=== PATIENT | male | born 1975 | race Hispanic/Latino ===

== ENCOUNTER 2017-11-27 19:02 | Inpatient (IN) | payer BC ==
[~2017-11-27] VITALS: Ht 165.1 cm; Wt 135.4 kg
[~2017-11-27 19:02] MED LIST: ACET-66 PO; AEC81 PO; ATOR40TA69 PO; CLOP75TA32 PO; LISI10TA7 PO; METF-805 PO; RANI300T4 PO
[2017-11-28] VITALS (7 sets, daily range): BP systolic 94–117; BP diastolic 35–67
[2017-11-28] MEDS ORDERED: DEXTROSE 50%-WATER 50 ML DISP.SYRIN IV PRN (04:45)
[2017-11-28] MEDS ORDERED: ACETAMINOPHEN 325 MG SUPPOSITORY RC PRN (04:45)
[2017-11-28] MEDS ORDERED: POTASSIUM CHLORIDE 20MEQ/100ML 100 ML IV PRN (04:45)
[2017-11-28] MEDS ORDERED: ONDANSETRON HCL MDV 20ML 2 MG/ML VIAL IVP PRN (04:45)
[2017-11-28] MEDS ORDERED: GUAIFENESIN SUGAR-FREE 100 MG/5 ML UDCUP PO PRN ×2 (04:45→08:45)
[2017-11-28] MEDS ORDERED: GLUCAGON 1MG KIT 1 MG ML IM PRN (04:45)
[2017-11-28] MEDS ORDERED: LIDOCAINE HCL-MPF 1% 2ML VIAL IVP PRN (04:45)
[2017-11-28] MEDS ORDERED: POTASSIUM CHLORIDE 10% ELIXIR 20 MEQ/15 ML UDCUP PO PRN (04:45)
[2017-11-28] MEDS ORDERED: POTASSIUM CHLORIDE 20 MEQ ERTAB PO PRN (04:45)
[2017-11-28] MEDS ORDERED: METO-408 PO (05:11)
[2017-11-28] MEDS ORDERED: NITR0.4T50 SL (05:11)
[2017-11-28] MEDS ORDERED: AZITHROMYCIN 500MG+NS 250ML 250 ML IV SCH (05:30)
[2017-11-28] MEDS ORDERED: NITROGLYCERIN 0.4 MG SL TAB SL PRN (05:30)
[2017-11-28] MEDS ORDERED: FAMOTIDINE 20MG TAB 20 MG TAB PO SCH (05:30)
[2017-11-28] MEDS: LEVOFLOXACIN 500 MG/D5W 100 ML 100 ML IV SCH (05:41)
[2017-11-28] MEDS ORDERED: PHARMACY COMMUNICATION MISC SCH ×2 (05:45→06:15)
[2017-11-28] MEDS ORDERED: NITROGLYCERIN 1GM/1 INCH PACKET TD SCH (06:00)
[2017-11-28] MEDS: IPRATROPIUM/ALBUTEROL SULFATE 3 ML SOLUTION IH SCH ×3 (06:04→18:24)
[2017-11-28] MEDS ORDERED: SODIUM CHLORIDE 3% FOR INHALATION 4 ML/AMP VIAL.NEB IH ONE (06:25)
[2017-11-28] MEDS: INSULIN LISPRO 100 UNIT/ML 3ML SQ SCH ×4 (06:29→21:00)
[2017-11-28] MEDS: NITROGLYCERIN 1GM/1 INCH PACKET TD SCH ×3 (06:30→17:59)
[2017-11-28] MEDS ORDERED: NITROGLYCERIN 0.4 MG SL TAB SL ONE (06:51)
[2017-11-28] MEDS ORDERED: METFORMIN HCL 500 MG TAB.SR.24H PO SCH (08:00)
[2017-11-28] MEDS ORDERED: ENOXAPARIN SODIUM 40 MG/0.4 ML SYRINGE SQ SCH (09:00)
[2017-11-28] MEDS ORDERED: METOPROLOL TARTRATE 25 MG TAB PO SCH (09:00)
[2017-11-28] MEDS: LISINOPRIL 10 MG TABLET PO SCH (09:00)
[2017-11-28] MEDS: ENOXAPARIN SODIUM 40 MG/0.4 ML SYRINGE SQ SCH (10:17)
[2017-11-28] MEDS: CLOPIDOGREL BISULFATE 75 MG TAB PO SCH (10:17)
[2017-11-28] MEDS: ASPIRIN 81 MG EC TAB PO SCH (10:17)
[2017-11-28] MEDS: METOPROLOL TARTRATE 25 MG TAB PO SCH ×2 (10:17→21:46)
[2017-11-28] MEDS: ENOXAPARIN SODIUM 100 MG/1 ML SQ SCH (10:18)
[2017-11-28] MEDS ORDERED: ACETAMINOPHEN 325 MG TAB ONE (19:25)
[2017-11-28] MEDS ORDERED: ACETAMINOPHEN 325 MG TAB PO PRN (19:45)
[2017-11-28] MEDS: ATORVASTATIN CALCIUM 40 MG TABLET PO SCH (21:46)
[2017-11-29] MEDS: IPRATROPIUM/ALBUTEROL SULFATE 3 ML SOLUTION IH SCH ×4 (00:07→18:35)
[2017-11-29] MEDS: NITROGLYCERIN 1GM/1 INCH PACKET TD SCH ×4 (00:15→17:46)
[2017-11-29 04:02] LABS: BASOPHILS % (AUTO) 0.6 % (0.0-5.0); EOSINOPHILS % (AUTO) 1.7 % (0.0-8.0); HEMATOCRIT 38.2 % (42-54); LYMPHOCYTES % (AUTO) 19.3 % (21.0-51.0); MEAN CORPUSCULAR HEMOGLOBIN 32.1 pg (27.0-33.0); MEAN CORPUSCULAR HGB CONC 35.6 g/dL (32.0-36.0); MEAN CORPUSCULAR VOLUME 90.3 fL (79-99); MONOCYTES % (AUTO) 15.2 % (3.0-13.0); NEUTROPHILS % (AUTO) 63.2 % (40.0-77.0); NUCLEATED RED BLOOD CELLS 0.1 % (0.0-0.19); PLATELET COUNT (AUTO) 140 K/uL (130-400); RED BLOOD CELL COUNT(AUTO) 4.23 MIL/uL (4.50-6.20); RED CELL DISTRIBUTION WIDTH 13.7 % (11.0-15.5)
[2017-11-29 04:06] LABS: CREATININE 1.3 mg/dL (0.5-1.5); MAGNESIUM 1.8 mg/dL (1.80-2.40); POTASSIUM 3.6 mmol/L (3.5-5.1)
[2017-11-29 04:30] VITALS: BP 86/37
[2017-11-29] MEDS: LEVOFLOXACIN 500 MG/D5W 100 ML 100 ML IV SCH (05:28)
[2017-11-29] MEDS: SODIUM CHLORIDE 0.9% 1000ML 1,000 ML IV SCH ×2 (06:45→12:43)
[2017-11-29] MEDS: INSULIN LISPRO 100 UNIT/ML 3ML SQ SCH ×4 (07:19→20:53)
[2017-11-29 07:42] VITALS: BP 105/61
[2017-11-29] MEDS: LISINOPRIL 10 MG TABLET PO SCH (09:00)
[2017-11-29] MEDS: CLOPIDOGREL BISULFATE 75 MG TAB PO SCH (09:50)
[2017-11-29] MEDS: METOPROLOL TARTRATE 25 MG TAB PO SCH ×2 (09:50→20:53)
[2017-11-29] MEDS: ASPIRIN 81 MG EC TAB PO SCH (09:50)
[2017-11-29] MEDS: ENOXAPARIN SODIUM 40 MG/0.4 ML SYRINGE SQ SCH (09:51)
[2017-11-29] MEDS: ENOXAPARIN SODIUM 100 MG/1 ML SQ SCH (09:51)
[2017-11-29 11:18] VITALS: BP 90/61
[2017-11-29 16:08] VITALS: BP 92/54
[2017-11-29 19:47] VITALS: BP 113/66
[2017-11-29] MEDS: ATORVASTATIN CALCIUM 40 MG TABLET PO SCH (20:54)
[2017-11-29 23:32] VITALS: BP 100/56
[2017-11-30] VITALS (11 sets, daily range): BP systolic 107–133; BP diastolic 64–81
[2017-11-30] MEDS: IPRATROPIUM/ALBUTEROL SULFATE 3 ML SOLUTION IH SCH ×3 (00:25→11:35)
[2017-11-30] MEDS: SODIUM CHLORIDE 0.9% 1000ML 1,000 ML IV SCH ×3 (00:40→14:45)
[2017-11-30] MEDS: NITROGLYCERIN 1GM/1 INCH PACKET TD SCH ×3 (00:41→12:19)
[2017-11-30 03:48] LABS: BASOPHILS % (AUTO) 0.8 % (0.0-5.0); EOSINOPHILS % (AUTO) 5.4 % (0.0-8.0); HEMATOCRIT 37.1 % (42-54); LYMPHOCYTES % (AUTO) 31.1 % (21.0-51.0); MEAN CORPUSCULAR HEMOGLOBIN 31.3 pg (27.0-33.0); MEAN CORPUSCULAR HGB CONC 34.8 g/dL (32.0-36.0); MEAN CORPUSCULAR VOLUME 89.9 fL (79-99); MONOCYTES % (AUTO) 14.3 % (3.0-13.0); NEUTROPHILS % (AUTO) 48.4 % (40.0-77.0); PLATELET COUNT (AUTO) 125 K/uL (130-400); RED BLOOD CELL COUNT(AUTO) 4.13 MIL/uL (4.50-6.20); RED CELL DISTRIBUTION WIDTH 13.7 % (11.0-15.5); WHITE BLOOD COUNT (AUTO) 6.4 K/uL (4.8-10.8)
[2017-11-30 03:55] LABS: POTASSIUM 3.8 mmol/L (3.5-5.1)
[2017-11-30] MEDS: LEVOFLOXACIN 500 MG/D5W 100 ML 100 ML IV SCH (06:07)
[2017-11-30] MEDS ORDERED: SODIUM CHLORIDE 0.9% 500ML 500 ML IV SCH (06:30)
[2017-11-30 06:59] LABS: HEMATOCRIT 37.6 % (42-54); MEAN CORPUSCULAR HEMOGLOBIN 30.9 pg (27.0-33.0); MEAN CORPUSCULAR HGB CONC 34.2 g/dL (32.0-36.0); MEAN CORPUSCULAR VOLUME 90.5 fL (79-99); PLATELET COUNT (AUTO) 125 K/uL (130-400); RED BLOOD CELL COUNT(AUTO) 4.15 MIL/uL (4.50-6.20); RED CELL DISTRIBUTION WIDTH 13.6 % (11.0-15.5); WHITE BLOOD COUNT (AUTO) 5.3 K/uL (4.8-10.8)
[2017-11-30 07:17] LABS: INR 0.98 (0.85-1.15); PARTIAL THROMBOPLASTIN TIME 28.1 SEC (26.3-35.5); PROTHROMBIN TIME 10.1 SEC (9.6-11.6)
[2017-11-30] MEDS: INSULIN LISPRO 100 UNIT/ML 3ML SQ SCH ×2 (07:30→11:30)
[2017-11-30] MEDS: ENOXAPARIN SODIUM 40 MG/0.4 ML SYRINGE SQ SCH (09:00)
[2017-11-30] MEDS: ENOXAPARIN SODIUM 100 MG/1 ML SQ SCH (09:00)
[2017-11-30] MEDS: METOPROLOL TARTRATE 25 MG TAB PO SCH (11:41)
[2017-11-30] MEDS ORDERED: IOPAMIDOL-370 100 ML VIAL IV ONE (12:05)
[2017-11-30] MEDS ORDERED: HEPARIN SODIUM 1000UNIT/ML 10ML VIAL ONE (12:05)
[2017-11-30] MEDS ORDERED: ISOVUE-370 50ML VIAL IV ONE (12:05)
[2017-11-30] MEDS ORDERED: LIDOCAINE HCL 2% 20ML ONE (12:05)
[2017-11-30] MEDS ORDERED: HYDR25TA PO (13:08)
[2017-11-30] MEDS ORDERED: LEVO500T2 PO (14:49)
[2017-11-30] MEDS: CLOPIDOGREL BISULFATE 75 MG TAB PO SCH (16:50)
[2017-11-30] MEDS: LISINOPRIL 10 MG TABLET PO SCH (16:50)
[2017-11-30] MEDS: ASPIRIN 81 MG EC TAB PO SCH (16:50)
== END 2017-11-30 18:39 | disposition home or self-care (01) | DRG 287 ==
LOC: 2AH 11-28 03:49
PROVIDERS: ADMIT Family Medicine; ATTEND Family Medicine
PROC: 5A09357 Assistance with Respiratory Ventilation, Less than 24 Consecutive Hours, Continuous Positive Airway Pressure (ICD-10-PCS; 2017-11-28)
PROC: 5A09357 Assistance with Respiratory Ventilation, Less than 24 Consecutive Hours, Continuous Positive Airway Pressure (ICD-10-PCS; 2017-11-29)
PROC: 4A023N7 Measurement of Cardiac Sampling and Pressure, Left Heart, Percutaneous Approach (ICD-10-PCS; principal; 2017-11-30)
PROC: B2111ZZ Fluoroscopy of Multiple Coronary Arteries using Low Osmolar Contrast (ICD-10-PCS; 2017-11-30)
DX: I25.110 Atherosclerotic heart disease of native coronary artery with unstable angina pectoris (principal); E66.01 Morbid (severe) obesity due to excess calories; E88.81 Metabolic syndrome and other insulin resistance; Z68.42 Body mass index [BMI] 45.0-49.9, adult; J20.8 Acute bronchitis due to other specified organisms; I10 Essential (primary) hypertension; B97.89 Other viral agents as the cause of diseases classified elsewhere; E11.9 Type 2 diabetes mellitus without complications; E78.5 Hyperlipidemia, unspecified; G47.33 Obstructive sleep apnea (adult) (pediatric); I25.2 Old myocardial infarction
CPT/HCPCS: 36415; 71045; 80048; 82948; 83735; 85025; 85027; 85610; 85730; 87040; 87071; 87205; 87633; 93005; 93458; 94640; 94664; C1760; C1894; J0456; J1644; J1650; J1956; J3490; J7030; Q9967